=== PATIENT | male | born 1975 | race Caucasian/White ===

== ENCOUNTER 2019-06-05 11:45 | Outpatient (CLI) | payer OTHER, SELFPAY ==
[2019-06-05 13:08] LABS: Abs Immature Grans 0.05 k/cumm (0.0-0.09); Absolute Basophil Count 0.07 k/cumm (0.0-0.2); Absolute Lymphocyte Count 2.13 k/cumm (1.2-3.4); Absolute Monocyte Count 0.64 k/cumm (0.11-0.7); Absolute Neutrophil Count 3.51 k/cumm (1.2-6.7); Eosinophils % 4.5; HCT 46.6 % (40.0-50.0); Immature Grans % 0.7; Lymphocytes % 31.8; Mean Corp. HGB Concentration 34.3 g/dL (32.0-36.0); Mean Corpuscular Hemoglobin 32.9 pg (27.0-33.0); Mean Corpuscular Volume 95.7 fL (80-95); Mean Platelet Volume 12.1 fL (8.0-11.0); Monocytes % 9.6; Neutrophils % 52.4; Platelet Count 178 x1000/uL (130-400); RBC 4.87 m/cumm (4.50-6.00); RBC Distribution Width 11.8 % (11.8-14.1)
[2019-06-05 13:45] LABS: ALT 161 U/L (16-63); AST 44 U/L (15-37); Albumin 3.9 g/dL (3.4-5.0); Alkaline Phosphatase 92 U/L (46-116); Anion Gap 6.8 mmol/L (3-11); BUN 19 mg/dL (7-18); Bilirubin, Total 0.5 mg/dL (0.2-1.0); CO2 31.2 mmol/L (21.0-32.0); CREATININE 1.19 mg/dL (0.70-1.30); Calcium 9.1 mg/dL (8.5-10.1); Calculated LDL 156 mg/dL; Chloride 103 mmol/L (98-107); Cholesterol 253 mg/dL (<200); Glucose 96 mg/dL (74-106); HDL Cholesterol 28 mg/dL (40-60); Potassium 4.3 mmol/L (3.5-5.1); Sodium 141 mmol/L (136-145); Triglyceride 348 mg/dL (<150)
== END 2019-06-05 12:05 ==
PROVIDERS: PCP Internal Medicine; Visit Provider Internal Medicine
DX: E78.5 Hyperlipidemia, unspecified (principal); R50.9 Fever, unspecified
CPT/HCPCS: 36415; 80053; 80061; 85025

== ENCOUNTER 2020-10-06 01:53 | Outpatient (CLI) | payer OTHER, SELFPAY ==
[2020-10-07 12:51] LABS: COVID-19 RT-PCR UVMMC Result Negative (Negative)
== END 2020-10-06 01:54 | disposition home or self-care (01) ==
LOC: LBO 01:53
PROVIDERS: PCP Nurse Practitioner; Visit Provider Nurse Practitioner
DX: Z20.822 Contact with and (suspected) exposure to COVID-19 (principal)
CPT/HCPCS: U0003

== ENCOUNTER 2020-10-19 02:43 | Outpatient (CLI) | payer OTHER, SELFPAY ==
[2020-10-20 11:52] LABS: COVID-19 RT-PCR UVMMC Result Negative (Negative)
== END 2020-10-19 02:44 | disposition home or self-care (01) ==
LOC: LBO 02:43
PROVIDERS: PCP Nurse Practitioner; Visit Provider Nurse Practitioner
DX: Z20.822 Contact with and (suspected) exposure to COVID-19 (principal)
CPT/HCPCS: U0003

== ENCOUNTER 2020-10-28 12:17 | Outpatient (CLI) | payer OTHER, SELFPAY ==
--- NOTE | 2020-10-28 08:55 | DI.RAD_ITS ---
Exam(s) XR KNEE LT 4V AP,LAT,BROOKE,PAT EXAM: XR KNEE LT 4V AP,LAT,BROOKE,PAT CLINICAL HISTORY: pain in left knee, internal derangement lt knee, M23.92. TECHNIQUE: 2D digital imaging was performed. COMPARISON: No exams were available for comparison FINDINGS: BONES: No acute fracture is present. No bony destructive lesion is seen. JOINTS: The knee is normally aligned. No joint effusion is seen. SOFT TISSUE: Normal. IMPRESSION: Normal radiographs of the left knee. DATA REPOSITORY: RADIATION DOSE DELIVERED:
== END 2020-10-28 12:37 ==
PROVIDERS: PCP Nurse Practitioner; Visit Provider Physician Assistant Surgical
DX: M25.562 Pain in left knee (principal); M23.92 Unspecified internal derangement of left knee
CPT/HCPCS: 73564

== ENCOUNTER 2020-11-18 04:11 | Outpatient (CLI) | payer OTHER, SELFPAY ==
--- NOTE | 2020-11-18 08:43 | DI.MRI_ITS ---
Exam(s) MR LOWER JOINT LT WO EXAM: MR LOWER JOINT LT WO CLINICAL HISTORY: traumatic injury 2 years ago,INTERNAL DERANGEMENT LT KNEE, PAIN,M23.92 TECHNIQUE: Multiplanar multisequence MRI was performed.. COMPARISON: No exams were available for comparison FINDINGS: MR examination of the knee was performed according to the usual protocol. There is no significant knee joint effusion. No significant bony signal abnormality seen. Medial tibiofemoral joint: The articular cartilage of the femur and tibia appears predominantly well maintained, however there is a small focal central articular cartilage defect of the medial femoral c ondyle measuring about 3 x 4 millimeters in diameter. There is a mid body tear of the medial meniscu s which is nondisplaced. The medial collateral ligament shows abnormal signal consistent with a grad e 1-2 tear. No posteromedial corner injury seen. Lateral tibiofemoral joint: The articular cartilage of the femur and tibia appears well maintained. The meniscus and attachments appear intact. The lateral collateral ligament complex and posterolater al corner structures appear intact. Patellofemoral joint and extensor mechanism: The articular cartilage of the patellofemoral joint appe ars intact except for slight surface roughening near the median ridge. The superior and inferior pat ellar fat pads appear normal with no signal abnormality. The quadriceps tendon and patellar tendon appear intact with no evidence of a tear or significant arabella ma. The medial and lateral retinacula appear intact. Cruciate ligaments: Cruciate ligaments and attachments appear normal with no evidence of a tear. Tibiofibular joint: No specific abnormality involving the tibiofibular joint. IMPRESSION: Nondisplaced midbody medial meniscal tear with low-grade MCL associated injury. Small focal articular cartilage defect of the central portion of the medial femoral condyle as descri bed above. Minimal articular cartilage roughening of the median ridge of the patella. DATA REPOSITORY:
== END 2020-11-18 04:31 ==
PROVIDERS: PCP Nurse Practitioner; Visit Provider Student in an Organized Health Care Education/Training Program
DX: M23.204 Derangement of unspecified medial meniscus due to old tear or injury, left knee (principal)
CPT/HCPCS: 73721

== ENCOUNTER 2020-12-12 02:22 | Outpatient (CLI) | payer OTHER, SELFPAY ==
[2020-12-12 11:30] LABS: Source Nasal/Nares
[2020-12-12 17:56] LABS: COVID-19 PCR Negative (Negative)
== END 2020-12-12 02:23 | disposition home or self-care (01) ==
LOC: LBO 02:22
PROVIDERS: PCP Nurse Practitioner; Visit Provider Student in an Organized Health Care Education/Training Program
DX: Z20.822 Contact with and (suspected) exposure to COVID-19 (principal); Z01.818 Encounter for other preprocedural examination
CPT/HCPCS: 87635

== ENCOUNTER 2020-12-14 09:07 | Day surgery (SDC) | payer OTHER, SELFPAY ==
[2020-12-14] VITALS (7 sets, daily range): BP systolic 108–134; BP diastolic 44–86; PULSE 57–68; RESP 13–18; TEMP 36–36.8; O2SAT 93–97; BMI 39.4
--- NOTE | 2020-12-14 09:42 | W.PM.DSUDISC ---
Discharge Plan Disposition Patient Disposition: HOME Condition: Good Discharge Details Reason For Visit: L knee arthroscopy Attending Provider: Bijan Chi Primary Care Provider: Ria Mcfadden Home Meds and New Rx's Prescriptions: New hydrocodone-acetaminophen 5-325 mg tablet 1 tab PO Q6H PRN (Reason: pain) Qty: 6 RF: 0 ibuprofen 600 mg tablet 600 mg PO TID PRN (Reason: pain) Qty: 30 RF: 0 acetaminophen 500 mg capsule 1,000 mg PO Q8H PRN PRNQty: 90 RF: 0 Discontinued naproxen 500 mg tablet 500 mg PO BID PRN (Reason: pain) Qty: 30 RF: 0 acetaminophen 500 mg Tablet 1,000 mg PO BID PRNRF: 0 Discharge Instructions Stand Alone Forms: Arti Knee Arthroscopy Referrals: Bijan Chi MD [ [facility] STAFF PHYSICIAN] - Equipment/Supplies: Partial Weight Bearing Crutches Activity:: Activity as Tolerated Remove Dressings/Wound Care:: 72 hours Shower/Bathe:: 72 hours Diet:: As Tolerated Discharge Orders Discharge Orders: Discharge Order (Routine); Ordered 12/14/20 Ordered By: Isaac Girard DS: Diagnosis Discharge Diagnosis (1) Tear of medial meniscus of left knee: Status: Acute
[2020-12-14] MEDS: Lactated Ringers 1,000 ML 80 ML IV (09:43)
[2020-12-14] MEDS: Acetaminophen 500 MG TAB 1000 MG PO (10:07)
[2020-12-14] MEDS: Celecoxib 200 MG CAP 400 MG PO (10:07)
--- NOTE | 2020-12-14 10:33 | W.ANESPRE ---
General Info Date of Service Date Performed: 12/14/20 Height: 6 ft 2 in Weight: 139.4 kg Body Mass Index (BMI): 39.4 Surgical Procedure: Operation Date: 12/14/20 13:10 Proposed Procedures Side Surgeon p LT KNEE ARTHROSCOPIC PARTIAL MEDIAL MENISECTOMY Left Bijan Chi MD Meds Allergies and Home Medications Allergies Allergy/AdvReac Type Severity Reaction Status Date / Time No Known Allergies Allergy Verified 12/14/20 08:40 Home Medication Medication Instructions Recorded acetaminophen 1,000 mg PO Q8H PRN PRN #90 cap 12/14/20 hydrocodone-acetaminophen 1 tab PO Q6H PRN #6 tab 12/14/20 ibuprofen 600 mg PO TID PRN #30 tab 12/14/20 Current Visit Medications: Current Medications Generic Name Dose Route Start Last Admin Trade Name Freq PRN Reason Stop Dose Admin Acetaminophen 1,000 mg 12/14/20 06:00 12/14/20 10:07 Acetaminophen 500 Mg Tab PO 1,000 mg PREOP ARLENE Administration Acetaminophen 650 mg 12/14/20 09:42 Acetaminophen 325 Mg Tab PO Q4H PRN PRN Hydrocodone Bitart/Acetaminophen 0 tab 12/14/20 09:42 Hydrocodone 5/Acetaminophen 325 Tab PO Q3H PRN PRN Pain Celecoxib 400 mg 12/14/20 06:00 12/14/20 10:07 Celecoxib 200 Mg Cap PO 400 mg PREOP ARLENE Administration Ringer's Solution 1,000 mls @ 80 mls/hr 12/14/20 06:00 12/14/20 09:43 IV 01/12/21 23:59 80 mls/hr INFUSION ARLENE Administration Cefazolin Sodium 3,000 mg/ 100 mls @ 200 mls/hr 12/14/20 06:00 Sodium Chloride IVPB 12/14/20 23:59 PREOP ARLENE IV Miscellaneous Supplies 1 each 12/14/20 06:00 Iv Access IV 01/12/21 23:59 DIRECTED ARLENE Sodium Chloride 0 ml 12/14/20 06:00 Normal Saline Flush 10 Ml Syr IV 01/12/21 23:59 PRN PRN Sodium Chloride 0 ml 12/14/20 06:00 Normal Saline 10 Ml Vial IJ 01/12/21 23:59 DIRECTED PRN Sterile Water 0 ml 12/14/20 06:00 Water,Injection,Sterile 10 Ml Vial IJ 01/12/21 23:59 DIRECTED PRN PFSH Active Problems Active Problems: Problem Status Onset Code Tear of medial meniscus of left knee S83.242A Internal derangement of left knee M23.92 Hypertension I10 Viral wart on finger B07.9 Alcohol abuse F10.10 Hyperlipidemia E78.5 Medical History Medical History (Updated 12/14/20 @ 09:43 by HANSEL Paige) Bursitis of left knee Chronic rhinitis (02/13/16) Muscle right arm weakness (02/13/16) deltoid due to trauma Surgical History Surgical History (Updated 12/14/20 @ 09:43 by HANSEL Paige) Injury of vein of right upper extremity Injury to vein (unable to recall details) - sounds like a left leg vein was used for repair >20 years Tear of medial meniscus of left knee S/P Arthroscopy: 12/14/2020 Tobacco Smoking/Tobacco Use Status: Former Tobacco Use Smokeless tobacco user: chewing tobacco Passive smoking exposure: Yes Second hand exposure: No Alcohol Alcohol Intake: current Alcohol intake frequency: a few times a week Alcohol type: hard liquor Substance Use Substance use: Never Substance use type: does not use Vital Signs and Lab Results Vital Signs Most Recent Vital Signs in EMR: Most Recent Vital Signs Temp Pulse Resp BP Pulse Ox 36.8 C 68 18 134/86 96 12/14/20 09:30 12/14/20 09:30 12/14/20 09:30 12/14/20 09:30 12/14/20 09:30 Lab Results Blood Type / Crossmatch: No Data to Display Complete Blood Count: No Data to Display Complete Metabolic Panel: No Data to Display Liver Function Panel: No Data to Display Coagulation Panel: No Data to Display Cardiac Panel: No Data to Display Arterial Blood Gas: No Data to Display Venous Blood Gas: No Data to Display Pancreas Panel: No Data to Display Thyroid Panel: No Data to Display Infectious Disease: Coronavirus (COVID-19)(PCR) Negative (Negative) 12/12/20 08:48 12/12/20 Coronavirus 2019 Source Nasal/nares 12/12/20 08:48 12/12/20 Blood Cultures: No Data to Display Toxicology Panel: No Data to Display Imaging and Studies Imaging and Studies Pulmonary Function Summary: Isolated borderline mildly elevated diffusion capacity. This can be seen in Asthma. If the diagnosis of asthma is in question, proceeding with methacholine challenge testing may prove to be useful. Anesthesia Assessment and Plan Anesthesia History Personal History: No History of Anesthesia Complications Family History: No Family History of Anesthesia Complications Exercise Tolerance Exercise Tolerance: Metabolic Equivalents>4 Pertinent Negatives Pertinent Negatives: No Symptoms of GERD, No Major Cardiovascular Symptoms or Complaints, No Major Pulmonary Symptoms or Complaints (+snores ), No History of CVA/TIA and Other Cardiac & Pulmonary Exam Cardiac Exam: Normal S1/S2 Heart Sounds Pulmonary Exam: Clear Bilateral Breath Sounds Airway Exam Known Difficult Airway: No Mallampati Class: 3 Mouth Opening: Normal (> 3cm) Thyromental Distance: Greater than 3 cm Facial Hair: Full Hale Neck Range of Motion: Full ROM Neck Circumference: Thick Teeth Condition: Normal Dentition ASA Classification ASA Score: ASA 2 Emergency Case?: No NPO Status NPO Status: NPO Clears >2 hours, Solids >8 hours Anesthesia Plan Resuscitation Status: Full Code Anesthesia Technique: General Anesthesia Airway Planned: LMA Monitors Used: Standard Monitors Preoperative Comments:: Discussed spinal vs LMA general with pt. Patient would like to proceed with general
[2020-12-14] MEDS: ceFAZolin 3,000 MG in Normal Saline 100 ML 200 MG IVPB (11:18)
[2020-12-14] MEDS: Bupivacaine 0.5% Pres-Free 30 ML VIAL (11:54)
--- NOTE | 2020-12-14 11:55 | W.PM.OP ---
Date of service: 12/14/20 Time of Service: 11:55 Operative Note Operative Note DATE OF PROCEDURE: 12/14/20 PRE-OP DIAGNOSIS: Left Medial Meniscus Tear POST-OP DIAGNOSIS: same PROCEDURE: Left Knee Arthroscopic Partial Medial Menisectomy SURGEON: Bijan Chi Refer to Anesthesia Record ESTIMATED BLOOD LOSS: 0 PATHOLOGY: none sent TOURNIQUET TIME: 0 COMPLICATIONS: None Patient was transported to: PACU Patient's condition: stable Indications: I have seen Ata in clinic for symptoms of a meniscus tear. This was confirmed based on MRI and exam findings. Nonoperative measures were exhausted but disability and pain persisted. I discussed knee arthroscopy with meniscal intervention with the patient. I reviewed the risks of the procedure to include, but not limited to, bleeding, infection, pain, stiffness, damage to nerves or vessels, recurrence, blood clot. Despite these risks, the patient elected to proceed. Findings: A diagnostic arthroscopy was performed with the following findings: Suprapatellar Pouch: Moderate inflammation, No loose bodies Medial Compartment: Subacute radial tear of the posterior horn with some associated complex tearing, Intact meniscal root, No significant chondromalacia or signs of arthritis, No loose bodies Notch: ACL and PCL were intact Lateral Compartment: No meniscal tear, Intact meniscal root, No significant chondromalacia or signs of arthritis, No loose bodies Patellofemoral Compartment: No significant chondromalacia, No apparent patellar maltracking Procedure Description: Ata was greeted in the preoperative holding area where the correct side was identified and marked. The consent was reviewed with the patient and signed. The history and physical was updated. All questions were answered. He was taken back to the operating room. The patient was placed into the supine position on the operating room table. A nonsterile tourniquet was placed high onto the leg but not used. All bony prominences were well padded. Prophylactic antibiotics in the form of Cefazolin were administered. The left leg was then prepped with Chloraprep and draped in a standard fashion with stockinette and extremity drape. A timeout to confirm correct identity, side and site, procedure, allergies, anesthesia, and medical concerns was performed. A standard lateral portal was made at the lateral border of the patella tendon in line with the inferior pole of the patella, soft spot. The skin and deep tissue was incised sharply and the blunt trochar was inserted atraumatically. A diagnostic arthroscopy was performed and the findings are listed above. The suprapatellar pouch had some moderate inflammatory change. The patellofemoral articulation showed no articular damage as well as good tracking. The lateral gutter had no loose bodies and the medial gutter had no loose bodies. The knee was brought into some valgus stress in extension to open the medial compartment. A medial portal was made, localized by a spinal needle. The portal was created with an #11 blade through skin and capsule under direct visualization avoiding any meniscal injury. A probe was then inserted into the medial compartment. The medial compartment was fully inspected. The chondral surface of the tibia showed no significant chondromalacia and the surface of the femur showed no significant chondromalacia. The medial meniscus had a complex tear with a primary radial component of the posterior horn. After evaluation, the meniscus was debrided down to a stable base using a series of biters and arthroscopic leander. It was probed afterwards to confirm that the tear had been removed and the meniscus was stable. The notch was then inspected which showed an intact ACL and an intact PCL. The leg was then brought into a figure of 4 position. The lateral compartment was fully inspected with the arthroscope and a probe. The chondral surface of the lateral femur showed no significant chondromalacia. The chondral surface of the lateral tibia showed no significant chondromalacia. The lateral meniscus had no meniscal tear. The arthroscope was brought back into the suprapatellar pouch and the leg was in full extension. The knee was thoroughly irrigated with the arthroscopic fluid on high flow and pressure. Inflow was stopped and excess fluid was removed. The wounds were closed with 4-0 Nylon. They were dressed with Xeroform, 4x4 gauze, ABD pad, Kerlix and an JUAN J wrap. A cryo-cuff was applied. Ata tolerated the procedure well and was returned to the Same Day Surgery area in a stable condition suffering no known complication.
[2020-12-14] MEDS: HYDROcodone 5/Acetaminophen 325 TAB PO (12:55)
--- NOTE | 2020-12-14 13:15 | W.ANESPOSTOP ---
Postoperative Evaluation Date, Time and Location Date Performed: 12/14/20 Time Performed: 13:16 Patient Location: Day Surgery Unit Vital Signs Most Recent Imported Vital Signs: Most Recent Vital Signs Temp Pulse Resp BP Pulse Ox 36.1 C L 59 L 16 118/68 93 12/14/20 12:25 12/14/20 12:25 12/14/20 12:25 12/14/20 12:25 12/14/20 12:25 Pain Score Most Recent Pain Score: Most Recent Pain Score Pain Level 0 12/14/20 12:25 Assessment Mental Status: Awake (Alert & Oriented to Patient Baseline) Airway and Respiratory Function: Patent airway with normal (patient baseline) respiratory exam Cardiovascular Function: Hemodynamically Stable Hydration Status: Adequately Hydrated Nausea & Vomiting: No Nausea or Vomiting Pain: Pt. Denies Any Pain Peripheral Nerve Block: Patient did not receive a nerve block
== END 2020-12-14 14:00 | disposition home or self-care (01) ==
PROVIDERS: PCP Nurse Practitioner; Visit Provider Student in an Organized Health Care Education/Training Program
PROC: (CPT 29870; principal; 2020-12-14 13:00)
DX: S83.242A Other tear of medial meniscus, current injury, left knee, initial encounter (principal)
CPT/HCPCS: 29881; J0690; J1100; J1885; J2001; J2405; J2704

== ENCOUNTER 2023-04-11 01:28 | Outpatient (CLI) | payer BC, SELFPAY ==
[2023-04-11] MEDS: Levalbuterol HFA 15 GM INH 4 PUFF IH (09:29)
[2023-04-11] MEDS: Inhaler, Assist Device 1 EACH MC (09:30)
--- NOTE | 2023-04-12 15:53 | W.PFT ---
Date of service: 04/11/23 Time of Service: 08:06 Pulmonary Function Test Result Indications: Cough Interpretation Spirometry: There is no airflow limitation. There is a significant bronchodilator response. Spirometry is restrictive. Impression No airflow obstruction but with a significant bronchodilator response. The restrictive appearing spirometry could be pseudo-restriction from obesity, however cannot rule out restrictive lung disease including ILD or neuromuscular weakness. Clinical Correlation therefore is recommended.
== END 2023-04-11 01:29 | disposition home or self-care (01) ==
LOC: RT 01:28
PROVIDERS: PCP Nurse Practitioner Family; Visit Provider Nurse Practitioner Family
DX: R06.2 Wheezing (principal)
CPT/HCPCS: 94060

== ENCOUNTER 2023-04-11 11:39 | Outpatient (CLI) | payer BC, SELFPAY ==
[2023-04-11 09:14] LABS: HCT 50.6 % (40.0-50.0); HGB 17.4 g/dL (13.5-17.5); MCH 32.5 pg (27.0-33.0); MCHC 34.4 % (32.0-36.0); MCV 94 fL (80-95); MPV 11.8 fL (8.0-11.0); Platelet Count 200 10^3/uL (130-400); RBC 5.36 10^6/uL (4.36-5.78); RDW 11.7 % (11.8-14.1); WBC 7.06 10^3/uL (4.4-10.8)
[2023-04-11 09:54] LABS: Hemoglobin A1C 5.8 % (<5.7)
[2023-04-11 10:04] LABS: ALT 83 U/L (16-63); AST 29 U/L (15-37); Albumin 3.7 g/dL (3.4-5.0); Alkaline Phosphatase 86 U/L (46-116); Anion Gap 3.9 mmol/L (3-11); BUN 18 mg/dL (7-18); Bilirubin, Total 0.5 mg/dL (0.2-1.0); CO2 30.1 mmol/L (21.0-32.0); CREATININE 1.1 mg/dL (0.70-1.30); Calcium 9.3 mg/dL (8.5-10.1); Calculated LDL 155 mg/dL (<100); Chloride 103 mmol/L (98-107); Cholesterol 239 mg/dL (<200); Estimated GFR 82.29 (mL/min/1.73m2); Glucose 143 mg/dL (74-106); HDL Cholesterol 35 mg/dL (40-60); Potassium 4.1 mmol/L (3.5-5.1); Sodium 137 mmol/L (136-145); Total Protein 7.5 g/dL (6.4-8.2); Triglyceride 249 mg/dL (<150)
== END 2023-04-11 11:40 | disposition home or self-care (01) ==
LOC: LBO 11:41
PROVIDERS: PCP Nurse Practitioner Family; Visit Provider Nurse Practitioner Family
DX: E78.5 Hyperlipidemia, unspecified (principal); F10.10 Alcohol abuse, uncomplicated; I10 Essential (primary) hypertension; R06.2 Wheezing; Z00.00 Encounter for general adult medical examination without abnormal findings
CPT/HCPCS: 36415; 80053; 80061; 85027; 83036

== ENCOUNTER → 2023-04-23 01:22 | Outpatient (CLI) | payer BC, SELFPAY ==
--- NOTE | 2023-04-23 07:30 | DI.RAD_ITS ---
Exam(s) XR CHEST 2V PA LATERAL EXAM: XR CHEST 2V PA LATERAL CLINICAL HISTORY: wheezing, cough and SOB,r06.2 TECHNIQUE: 2D digital imaging was performed. COMPARISON: No exams were available for comparison FINDINGS: HEART: Normal size. Aorta: Not dilated. PULMONARY VASCULATURE: Normal. LUNGS: Clear. PLEURAL SPACE: No pleural effusion or pneumothorax. BONE:Unremarkable for age. IMPRESSION: No acute abnormality. DATA REPOSITORY: RADIATION DOSE DELIVERED:
== END ==
PROVIDERS: PCP Nurse Practitioner Family; Visit Provider Nurse Practitioner Family
DX: R06.2 Wheezing (principal); R05.9 Cough, unspecified
CPT/HCPCS: 71046

== ENCOUNTER 2023-11-07 06:07 | Emergency (ER) | payer BC, SELFPAY ==
--- NOTE | 2023-11-07 07:15 | DI.CT_ITS ---
Exam(s) CT ABDOMEN PELVIS W EXAM: CT ABDOMEN PELVIS W CLINICAL HISTORY: RLQ PAIN TECHNIQUE: Imaging Protocol: Axial computed tomography images with coronal and sagittal reformatted images were created and reviewed. CONTRAST MATERIAL: Intravenous: Omnipaque 350 Contrast volume:100 mL Oral: No COMPARISON: No exams were available for comparison FINDINGS: ABDOMEN: Lung Bases: Normal where visualized. Liver: There is decreased attenuation of the liver consistent with fatty infiltration. The liver lilia sures 23 cm long. No measurable mass. Portal, Superior Mesenteric, and Splenic Veins: Unremarkable. Gallbladder and Biliary Tract: No radiodense calculus or dilation. Pancreas: Normal density, no abnormal calcifications or inflammatory process. Spleen: Normal. Adrenals: No masses seen. Kidneys: Normal size, contour and axis. There is a 7 mm right UPJ stone causing [id number] hydr onephrosis. No masses seen. Abdominal Aorta: Abdominal portion non-dilated. Bowel: No obstruction or bowel wall thickening. Appendix is unremarkable. Peritoneal Cavity: No ascites, collection or mesenteric inflammatory response. No free air. Lymph Nodes: Mildly prominent lymph nodes are seen in the mesentery. There is a 1.8 cm lymph node mo perior to the head of the pancreas. Bones: Within normal limits for the patient's age. Soft Tissues: Unremarkable. PELVIS: Bladder: There is mild thickening of the wall of the urinary bladder. The urinary bladder is incompl etely distended. Reproductive Organs: Prostatic calcifications are present. Lymph Nodes: Within normal limits. Bones: Within normal limits for the patient's age. IMPRESSION: 1. 7 mm right UPJ stone causing pznr-pz-iodidljp hydronephrosis. 2. Mild wall thickening of the urinary bladder. This may be due to underdistention. Cystitis or chr onic bladder outlet obstruction cannot be excluded. Please correlate clinically. 3. Nonspecific prominent lymph nodes. There is a 1.8 cm lymph nodes appear to the head of the pancre as. Follow-up imaging in 3-6 months is recommended. 4. Hepatomegaly and hepatic steatosis. Unexpected findings RADIATION DOSE DELIVERED: 1,687.85mGy.cm Total DLP DATA REPOSITORY: All CT scans at this facility are submitted to the National Radiology Data Registry (NRDR) Dose Index Registry (DIR) with the [employer] ([employer]). RADIATION OPTIMIZATION: All CT scans at this facility use at least one of these dose optimization te chniques: automated exposure control; mA and/or kV adjustment per patient size (includes targeted exa ms where dose is matched to clinical indication); or iterative reconstruction.
[2023-11-07] MEDS: Ketorolac 15 MG/ML VIAL IVP (10:04)
[2023-11-07] MEDS: Normal Saline 1,000 ML 1000 ML IV (10:04)
[2023-11-07] MEDS: Omnipaque 350 MG/ML 100 ML BTL IJ (10:22)
[2023-11-07 11:35] LABS: Bilirubin Negative (Negative); Blood Negative (Negative); Clarity Clear (Clear); Glucose Negative (Negative); Ketones Negative (Negative); Leukocyte Esterase Negative (Negative); Nitrite Negative (Negative); Urobilinogen 0.2 mg/dL (Up to 0.2)
[2023-11-07 11:46] LABS: Albumin 3.7 g/dL (3.4-5.0); Alkaline Phosphatase 80 U/L (46-116); Anion Gap 9.6 mmol/L (3-11); BUN 18 mg/dL (7-18); Bilirubin, Total 0.6 mg/dL (0.2-1.0); CO2 27.4 mmol/L (21.0-32.0); CREATININE 1.3 mg/dL (0.70-1.30); Calcium 8.5 mg/dL (8.5-10.1); Chloride 104 mmol/L (98-107); Estimated GFR 67.34 (mL/min/1.73m2); Glucose 167 mg/dL (74-106); Potassium 4.3 mmol/L (3.5-5.1); Sodium 141 mmol/L (136-145); Total Protein 7.3 g/dL (6.4-8.2)
[2023-11-07 11:47] LABS: ALT 98 U/L (16-63); AST 31 U/L (15-37); Lipase 66 U/L (16-77)
[2023-11-07 11:52] LABS: Lactate 2.4 mmol/L (0.6-1.4)
--- NOTE | 2023-11-07 12:03 | ED.PROG_ITS ---
Date of service: 11/07/23 Time of Service: 12:03 Medical Decision Making Patient signed out to me from overnight provider who saw him while he was on downtime please see their written documentation that should be uploaded into the system. He came in for right lower quadrant abdominal pain, CT shows a right UVJ stone 7 mm in size per radiology. UA not consistent with infection. He feels significantly better, tolerating p.o. and has adequate pain control. Will discharge and have him follow-up with urology as soon as possible, return precautions given Lab Data Lab results reviewed: Yes I reviewed the patient's lab results. Quality:[facility] Health Related Social Needs: No Data to Display Discharge Plan Disposition Patient Disposition: Home Condition: Stable Discharge Details Clinical Impression: Abdominal pain, Right kidney stone Primary Care Provider: Unknown,Unknown ED Provider: Tacos Maddox Home Meds and New Rx's Prescriptions: New ondansetron 4 mg tablet,disintegrating 4 mg PO Q8H PRN (Reason: nausea and vomiting) Qty: 30 0RF oxycodone 5 mg tablet 5 mg PO Q8H PRNQty: 12 0RF tamsulosin [Flomax] 0.4 mg capsule 0.4 mg PO DAILY Qty: 14 0RF Rx Instructions: Take once daily for 14 days or until you passed your kidney stone Continued budesonide-formoterol [Symbicort] 80-4.5 mcg/actuation HFA aerosol inhaler 2 puff inhalation BID Qty: 10.2 12RF Rx Instructions: To use as SMART therapy. up to 12 puffs in a day ibuprofen 600 mg tablet 600 mg PO TID PRN (Reason: pain) Qty: 30 0RF acetaminophen 500 mg capsule 1,000 mg PO Q8H PRN PRNQty: 90 0RF budesonide-formoterol [Symbicort] 80-4.5 mcg/actuation HFA aerosol inhaler 2 inh inhalation BID Discharge Instructions Instructions: Kidney Stones (ED) Additional Instructions: You should receive a call for a follow-up appointment with urology You can take 1000 mg of Tylenol and 600 mg of ibuprofen every 6 hours as needed If you feel more ill, have high fevers, uncontrolled pain, or persistent vomiting return to the emergency department for reevaluation
[2023-11-07 12:05] LABS: HCT 51.6 % (40.0-50.0); HGB 17.6 g/dL (13.5-17.5); MCH 32.8 pg (27.0-33.0); MCHC 34.1 % (32.0-36.0); MCV 96 fL (80-95); RBC 5.36 10^6/uL (4.36-5.78); RDW 11.8 % (11.8-14.1); RDW-SD 41.7 fL; WBC 7.77 10^3/uL (4.4-10.8)
--- NOTE | 2023-11-07 12:07 | NUR.NOTE ---
Referral faxed to Urology for a follow up appointment for kidney stones as soon as possible
[2023-11-07 12:10] LABS: Absolute Lymphocyte Count 2.39 10^3/uL (1.2-3.4); Absolute Monocyte Count 0.55 10^3/uL (0.1-0.8); Lymphocytes % 30.8 %; Monocytes % 7.1 %; Neutrophils % 53.7 %
[2023-11-07 12:11] LABS: Abs Immature Grans 0.15 10^3/uL (0.0-0.06); Absolute Basophil Count 0.09 10^3/uL (0.0-0.2); Absolute Eosinophil Count 0.41 10^3/uL (0.0-0.7); Absolute Neutrophil Count 4.18 10^3/uL (1.2-6.7); Basophils % 1.2 %; Diff Comment Diff Reviewed; Eosinophils % 5.3 %; Immature Grans % 1.9 %; RBC Morphology Normal
== END 2023-11-07 12:50 | disposition home or self-care (01) ==
PROVIDERS: Student in an Organized Health Care Education/Training Program; Emergency Provider Emergency Medicine
DX: N20.0 Calculus of kidney (principal); R10.31 Right lower quadrant pain; R11.2 Nausea with vomiting, unspecified
CPT/HCPCS: 00123; 80053; 83690; 96361; 96374; 99285; 74177; 81003; 83605; 85025; 99283; J1885; J3490

== ENCOUNTER 2024-06-26 00:32 | Outpatient (CLI) | payer BC, SELFPAY ==
--- NOTE | 2024-06-26 07:45 | DI.CT_ITS ---
Exam(s) CT ABDOMEN W EXAM: CT ABDOMEN W CLINICAL HISTORY: Follow up CT from October 2023, pancreatic cyst, K86.2 TECHNIQUE: Imaging Protocol: Axial computed tomography images with coronal and sagittal reformatted images were created and reviewed CONTRAST MATERIAL: Intravenous: Omnipaque 350 Contrast volume:100 contrast route:IV - Oral: no COMPARISON: CT CT ABDOMEN PELVIS W from 11/07/2023 FINDINGS: ABDOMEN: Lung Bases: Normal where visualized. Liver: Again noted to be enlarged at 23 cm. Similar decreased attenuation consistent with fatty infi ltration. No measurable mass. Gallbladder and biliary tract: No radiodense calculus or dilation. Pancreas: Normal density, no abnormal calcifications or inflammatory process. Spleen: Normal. Kidneys: The right kidney appears atrophic, measuring 9.2 cm in length and shows some parenchymal th inning.. The left kidney measures 12.7 cm in length.. No radiodense stones or obstructive uropathy. No masses seen. Adrenal glands: No masses seen. Abdominal Aorta: Abdominal portion non-dilated. Lymph nodes: Stable size of lymph nodes superior to the pancreatic head measuring 18 millimeters cox sverse. There are other small lymph nodes in the mesentery which appear stable. Bowel: No wall thickening or evidence of obstruction. Stomach unremarkable as visualized. Bones: Unremarkable for age. IMPRESSION: Stable size of lymph nodes superior to the head of the pancreas. Stable enlarged liver with hepatic steatosis. Mildly atrophic right kidney. No stone or hydronephrosis. RADIATION DOSE DELIVERED: 677.66mGy.cm Total DLP DATA REPOSITORY: All CT scans at this facility are submitted to the National Radiology Data Registry (NRDR) Dose Index Registry (DIR) with the [employer] (ACR). RADIATION OPTIMIZATION: All CT scans at this facility use at least one of these dose optimization te chniques: automated exposure control; mA and/or kV adjustment per patient size (includes targeted exa ms where dose is matched to clinical indication); or iterative reconstruction.
[2024-06-26] MEDS: Barium Sulfate 2% W/V-Berry Smoothie 450 ML BTL PO (13:23)
[2024-06-26 13:31] LABS: Hemoglobin A1C 5.6 % (<5.7)
[2024-06-26 13:39] LABS: Anion Gap 8.6 mmol/L (3-11); BUN 23 mg/dL (7-18); CO2 29.4 mmol/L (21.0-32.0); CREATININE 1.7 mg/dL (0.70-1.30); Calcium 8.8 mg/dL (8.5-10.1); Calculated LDL 160 mg/dL (<100); Chloride 103 mmol/L (98-107); Cholesterol 228 mg/dL (<200); Estimated GFR 48.51 (mL/min/1.73m2); Glucose 101 mg/dL (74-106); HDL Cholesterol 31 mg/dL (40-60); Potassium 4.2 mmol/L (3.5-5.1); Sodium 141 mmol/L (136-145); Triglyceride 187 mg/dL (<150)
[2024-06-26] MEDS: Omnipaque 350 MG/ML 100 ML BTL IJ (14:17)
[2024-06-26] MEDS: Normal Saline - Diluent 50 ML VIAL IJ (14:18)
== END 2024-06-26 00:52 ==
LOC: DI 00:32
PROVIDERS: PCP Nurse Practitioner Family; Visit Provider Nurse Practitioner Family
DX: Z00.00 Encounter for general adult medical examination without abnormal findings (principal); I10 Essential (primary) hypertension; E78.2 Mixed hyperlipidemia; J45.909 Unspecified asthma, uncomplicated; F10.10 Alcohol abuse, uncomplicated; K86.2 Cyst of pancreas
CPT/HCPCS: 80048; 80061; 74160; 83036; J3490

== ENCOUNTER 2024-10-02 07:04 | Day surgery (SDC) | payer BC, SELFPAY ==
--- NOTE | 2024-10-01 16:33 | HPE_ITS ---
Assessment and Plan Assessment and plan (1) Positive colorectal cancer screening using Cologuard test: Status: Acute Assessment and plan: We reviewed the role of screening colonoscopy as part of routine health maintenance, what to expect in terms of the procedure and the recovery. Ata had a chance to ask any questions about the procedure. We can proceed with colonoscopy as planned. History of Present Illness History of Present Illness Chief Complaint: Screening colonoscopy Narrative: Ata is a 49-year-old male who underwent a Cologuard test which was positive. He is following up with his first screening colonoscopy. He denies any melena, hematochezia, unintentional weight loss, or other signs or symptoms of colorectal cancer. He denies any family history of colon cancer. PFSH All Active Problems Positive colorectal cancer screening using Cologuard test (Acute) Asthma (Chronic) Plantar fasciitis (Acute) Dysphagia (Acute) Hypertension (Chronic) Alcohol abuse (Chronic) 2-3 x week, 3-4 drinks Hyperlipidemia (Acute) Medical History Chronic rhinitis (02/13/16) Muscle right arm weakness (02/13/16) deltoid due to trauma Bursitis of left knee Surgical History Injury of vein of right upper extremity Injury to vein (unable to recall details) - sounds like a left leg vein was used for repair >20 years Tear of medial meniscus of left knee S/P Arthroscopy: 12/14/2020 Family History Mother No problems noted. Father Diabetes Brother No problems noted. Maternal Grandfather No problems noted. Paternal Grandfather No problems noted. Maternal Grandmother No problems noted. Paternal Grandmother Breast cancer Daughter No problems noted. Social History Smoking/Tobacco Use Status: Former Tobacco Use Quit Date: 07/01/23 Smokeless tobacco user: chewing tobacco Second Hand Exposure: Yes Smoking risk assessment performed?: Yes Alcohol Intake: current Alcohol Intake frequency: a few times a week Alcohol type: hard liquor Details: 6 or more drinks monthly or less Drug use: Never Substance use type: does not use Counseling given: No Adopted: No Caregiver/Support person: No Household members: spouse and children Housing: house Number of Children: 1 number of grandchildren: 0 Communication Needs: None Education Level: college Details: [employer]. 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 [employer] Pets and animals: Yes Pets and animals: cat(s), dog(s) and fish Sexually active: Yes Do you think of yourself as: straight/heterosexual Current gender identity: male What is your relationship status?: How often do you talk on the phone with friends or family?: three or more times per week How often do you get together with friends or relatives?: once per week How often do you attend jew or tenriism services?: decline to answer Do you belong to any clubs or organized social groups?: no Panel score (0-1 are the most socially isolated patients): 2 What type of physical activity do you participate in: other Details: hunting, work Duration: 30-45 minutes/day Frequency: 3-4 times per week Riri/Hoahaoism: L[employer] Day Special riri needs: No Seatbelt use: sometimes Helmet use: No Drive intox or ride w/intox drive away driver: No Firearms in home: Yes Firearms unloaded and locked: No Do you feel safe at home: Yes Do you feel safe in your relationship?: Yes Victim of physical abuse: No Victim of emotional abuse: No Victim of sexual abuse: No Would you like helpful sources: No Meds Allergies and Home Medications Allergies Allergy/AdvReac Type Severity Reaction Status Date / Time No Known Allergies Allergy Verified 10/02/24 07:12 Home Medications ?Medication ?Instructions ?Recorded ?Confirmed ?Type ibuprofen 600 mg tablet 600 mg PO TID PRN pain #30 tabs 12/14/20 10/01/24 Rx budesonide-formoterol HFA 80 2 inh inhalation BID 11/07/23 10/02/24 History mcg-4.5 mcg/actuation aerosol inhaler (Symbicort) Exam Const General: cooperative, healthy appearing and not in acute distress Neck Neck: normal visual inspection, no lymphadenopathy and supple Resp Effort & Inspection: normal respiratory effort Auscultation: clear to auscultation bilaterally Cardio Jugular venous pressure: no JVD Rate: regular rate Rhythm: regular rhythm Heart Sounds: S1 normal and S2 normal GI Inspection: normal to inspection Palpation: soft, no guarding, no hernias and nontender Percussion: normal to percussion Auscultation: normal bowel sounds Neuro General: patient alert, patient awake and patient oriented x3 Psych Appearance: grossly normal
--- NOTE | 2024-10-01 16:34 | W.PM.DSUDISC ---
Date of service: 10/02/24 Discharge Plan Disposition Patient Disposition: Home Condition: Good Discharge Details Reason For Visit: Screening colonoscopy Attending Provider: Israel Rahman Primary Care Provider: Kirsten Ramirez Home Meds and New Rx's Prescriptions: Continued ibuprofen 600 mg tablet 600 mg PO TID PRN (Reason: pain) Qty: 30 0RF budesonide-formoterol [Symbicort] 80-4.5 mcg/actuation HFA aerosol inhaler 2 inh inhalation BID Discontinued polyethylene glycol 3350 17 gram/dose powder 238 g PO ONCE Qty: 238 0RF Rx Instructions: take per colonoscopy instructions bisacodyl [Dulcolax (bisacodyl)] 5 mg tablet,delayed release (DR/EC) 5 mg PO ONCE Qty: 4 0RF Rx Instructions: take per colonoscopy instructions Discharge Instructions Instructions: Colon polyps Additional Instructions: CINTHIA, I hope you are comfortable through the colonoscopy. Everything went very smoothly. I did find, and removed a total of 5 polyps today. All of these were relatively small, none of them have any worrisome features to the naked eye. These will all be sent off for testing, once I know the nature of the polyps, my office will be in touch with recommendations for future colonoscopies. If you need anything, or have any questions, please do not hesitate to ask. 1. If tolerated, consume a soft, low fiber diet for 1-2 days. 2[address] Do not drive, drink alcohol, operate machinery, make critical decisions, or do activities that require coordination or balance for 24 hours. 3. Because air was put into your colon during the procedure, expelling air from your rectum (passing gas or farting) is normal. 4. You may not have a bowel movement for 1-3 days because of the colonoscopy prep. This is normal. 5. Go directly to the emergency room if you notice any of the following: Develop chills (warm to touch), or if you have a thermometer and your temperature is above 101 Difficulty breathing or difficultly swallowing Persistent vomiting Severe abdominal pain, other than gas cramps Severe chest pain Black, tarry stools Any bleeding ? exceeding one tablespoon 6. Call your physician if the site where your intravenous was started becomes red, swollen, painful, and warm to touch. 7. Your physician has reviewed your pre-procedure medications. Please continue to take those medications as previously ordered. You will be given specific information/education regarding any changes to your medications before leaving. Activity:: Activity as Tolerated Diet:: As Tolerated Discharge Orders Discharge Orders: Discharge Order (Routine); Ordered 10/01/24 Ordered By: Israel Rahman DS: Diagnosis Discharge Diagnosis (1) Positive colorectal cancer screening using Cologuard test: Status: Acute Asessment and Plan: Follow-up on polypectomy results
[2024-10-02 07:17] VITALS: BP 172/108; PULSE 61; RESP 20; TEMP 36.3; O2SAT 97
[2024-10-02] MEDS: Lactated Ringers 1,000 ML 80 ML IV (07:31)
--- NOTE | 2024-10-02 07:34 | W.ANESPRE ---
General Info Date of Service Date Performed: 10/02/24 Height: 6 ft 3 in Weight: 139.5 kg Body Mass Index (BMI): 38.4 Surgical Procedure: Operation Date: 10/02/24 08:20 Proposed Procedure Side Surgeon panda Rahman MD Meds Allergies and Home Medications Allergies Allergy/AdvReac Type Severity Reaction Status Date / Time No Known Allergies Allergy Verified 10/02/24 07:12 Home Medication ?Medication ?Instructions ?Recorded ibuprofen 600 mg tablet 600 mg PO TID PRN pain #30 tabs 12/14/20 budesonide-formoterol HFA 80 2 inh inhalation BID 11/07/23 mcg-4.5 mcg/actuation aerosol inhaler (Symbicort) Current Visit Medications: Current Medications Generic Name Dose Route Start Last Admin Trade Name Freq PRN Reason Stop Dose Admin Ringer's Solution 1,000 mls @ 80 mls/hr 10/02/24 06:00 10/02/24 07:31 IV 10/02/24 23:59 80 mls/hr INFUSION ARLENE Administration IV Miscellaneous Supplies 1 each 10/02/24 06:00 Iv Access IV 10/02/24 23:59 DIRECTED ARLENE Ondansetron HCl 4 mg 10/01/24 16:35 Ondansetron 4 Mg/2 Ml Vial IVP 10/31/24 16:34 Q4H PRN PRN Nausea / Vomiting Sodium Chloride 0 ml 10/02/24 06:00 Normal Saline Flush 10 Ml Syr IV 10/02/24 23:59 PRN PRN Sodium Chloride 0 ml 10/02/24 06:00 Normal Saline 10 Ml Vial IJ 10/02/24 23:59 DIRECTED PRN Sterile Water 0 ml 10/02/24 06:00 Water,Injection,Sterile 10 Ml Vial IJ 10/02/24 23:59 DIRECTED PRN PFSH Active Problems Active Problems: Problem Status Onset Code Positive colorectal cancer screening using Cologuard test Acute R19.5 Asthma Chronic J45.909 Plantar fasciitis Acute M72.2 Dysphagia Acute R13.10 Hypertension Chronic I10 Alcohol abuse Chronic F10.10 Hyperlipidemia Acute E78.5 Medical History Medical History Chronic rhinitis (02/13/16) Muscle right arm weakness (02/13/16) deltoid due to trauma Bursitis of left knee Surgical History Surgical History Injury of vein of right upper extremity Injury to vein (unable to recall details) - sounds like a left leg vein was used for repair >20 years Tear of medial meniscus of left knee S/P Arthroscopy: 12/14/2020 Tobacco Smoking/Tobacco Use Status: Former Tobacco Use Smokeless tobacco user: chewing tobacco Passive smoking exposure: No Second hand exposure: Yes Alcohol Alcohol Intake: current Alcohol intake frequency: a few times a week Alcohol type: hard liquor Details: 6 or more drinks monthly or less Substance Use Substance use: Never Substance use type: does not use Vital Signs and Lab Results Vital Signs Most Recent Vital Signs in EMR: Most Recent Vital Signs Temp Pulse Resp BP Pulse Ox 36.3 C L 61 20 172/108 H 97 10/02/24 07:17 10/02/24 07:17 10/02/24 07:17 10/02/24 07:17 10/02/24 07:17 Lab Results Blood Type / Crossmatch: No Data to Display Complete Blood Count: No Data to Display Complete Metabolic Panel: No Data to Display Liver Function Panel: No Data to Display Coagulation Panel: No Data to Display Cardiac Panel: No Data to Display Arterial Blood Gas: No Data to Display Venous Blood Gas: No Data to Display Pancreas Panel: No Data to Display Thyroid Panel: No Data to Display Infectious Disease: No Data to Display Blood Cultures: No Data to Display Toxicology Panel: No Data to Display Imaging and Studies Imaging and Studies Study information below may be from another EMR and interpreted by another provider. Please see original notes in EMR for more complete details. Pulmonary Function Summary: Isolated borderline mildly elevated diffusion capacity. This can be seen in Asthma. If the diagnosis of asthma is in question, proceeding with methacholine challenge testing may prove to be useful. Anesthesia Assessment and Plan Anesthesia History Personal History: No History of Anesthesia Complications Family History: No Family History of Anesthesia Complications Exercise Tolerance Exercise Tolerance: Metabolic Equivalents>4 Pertinent Negatives Pertinent Negatives: No Symptoms of GERD Cardiac & Pulmonary Exam Cardiac Exam: Normal S1/S2 Heart Sounds Pulmonary Exam: Clear Bilateral Breath Sounds Implantable Cardiac Device Does patient have a Pacemaker or an ICD?: No Airway Exam Known Difficult Airway: No Mallampati Class: 3 Mouth Opening: Normal (> 3cm) Thyromental Distance: Greater than 3 cm Neck Range of Motion: Full ROM Neck Circumference: Thick Teeth Condition: Normal Dentition ASA Classification ASA Score: ASA 2 Emergency Case?: No NPO Status NPO Status: NPO Clears >2 hours, Solids >8 hours Anesthesia Plan Resuscitation Status: Full Code Anesthesia Technique: General Anesthesia Airway Planned: Natural Airway Monitors Used: Standard Monitors
[2024-10-02 07:36] VITALS: BMI 38.4
[2024-10-02] MEDS: Famotidine 20 MG/2 ML VIAL IVP ×2 (07:44)
--- NOTE | 2024-10-02 08:34 | BOWEL_PTH ---
PATIENT: Ata Flower LOC: [facility] U#:[id number] AGE/SX: 49/M ROOM: RE10/02/[address]: Israel Rahman MD : [id number] BED: DIS: 10/02/2024 SPEC #: [id number] RECD: 10/02/24 13:06 STATUS: KOLE RE #: [id number] YANA: 10/02/24 08:[address]: Israel Rahman DEPT: Surgical Specimen RECD BY: Lara Holley ENTERED: 10/02/24 13:08 SP TYPE: Bowel OTHR DR: Kirsten Ramirez, MOOSE Tissues: 1 - BIOPSY BOWEL 2 - BIOPSY BOWEL 3 - BIOPSY BOWEL Procedures: GROSS AND MICRO LEVEL 4 Comments: [id number]
[2024-10-02 08:57] VITALS: BP 148/81; PULSE 64; RESP 16; TEMP 36.5; O2SAT 93
--- NOTE | 2024-10-02 08:59 | W.COLOREPORT ---
Date of service: 10/02/24 Time of Service: 08:59 Colonoscopy Report Date of procedure: 10/02/24 Pre-op diagnosis general: Screening colonoscopy with positive Cologuard test Post-op diagnosis procedure note: other (Colon polyps) Procedure: Colonoscopy with polypectomy Surgeon: Israel Rahman Anesthesia Type: General:No Airway Estimated blood loss (mL): 5 Pathology: other (0.25 cm polyp at 60 cm, 0.25 cm polyps at 30 cm x 2, 0.25 cm polyps at 20 cm x 2) Complications: None Disposition: same day Indications: Jasvir is a 49-year-old male with positive Cologuard test he needs us for screening colonoscopy Prep: Miralax/Dulcolax Procedure Start Time: 08:30 Procedure End Time: 08:37 Retraction Time: 6 Findings: 0.25 cm polyp at 60 cm, 0.25 cm polyps at 30 cm x 2, 0.25 cm polyps at 20 cm x 2 Procedure Description: After the induction of anesthesia, and with the patient in left lateral decubitus position, I began by performing an external anorectal exam.? Perineum and skin were normal, as was the anal verge.? There was no evidence of external hemorrhoids.? Next, I performed a digital rectal exam.? I did not appreciate any abnormal findings.? Next, I advanced a colonoscope into the rectal vault.? I performed retroflexion.? This appeared normal.? Using insufflation, I then advanced the colonoscope beyond the rectal folds and into the sigmoid colon before advancing towards the cecum.? The quality of the prep was adequate.? Around 60 cm from the anal verge was a 0.25 cm polyp. It was mostly flat. Narrowband imaging was used to assist with the analysis. It appeared adenomatous. This was removed with cold forceps with minimal bleeding. Scope was noted to be in the cecum by identification of the ileocecal valve and appendiceal orifice.? I then began withdrawing the colonoscope using repeated irrigation as necessary for full evaluation of the colonic mucosa. ?The previous polypectomy site looks fine around 30 cm from the anal verge for 2 more polyps. These were immediately adjacent to 1 another. These were removed with cold forceps with minimal bleeding. Once the scope was withdrawn to the level of the rectum, great care was taken to examine portions of the rectal folds.? In the upper portion of the rectal vault, just around 20 cm from the anal verge for tumor polyps. These appeared a little more consistent with hyperplastic polyps, but to be safe, these were also removed with cold forceps. Finally, the scope was withdrawn and the patient was brought to the same-day surgery recovery unit as the anesthetic wore off. ?The findings and instructions were shared with the patient prior to discharge. [place] Bowel Prep [place] Bowel Prep Right Colon: 2 Left Colon: 2 Transverse Colon: 3 Total Score: 7
[2024-10-02 09:30] VITALS: BP 149/89; PULSE 58; RESP 18; TEMP 36.2; O2SAT 97
--- NOTE | 2024-10-02 09:46 | W.ANESPOSTOP ---
Postoperative Evaluation Date, Time and Location Date Performed: 10/02/24 Time Performed: 09:46 Patient Location: Day Surgery Unit Vital Signs Most Recent Imported Vital Signs: Most Recent Vital Signs Temp Pulse Resp BP Pulse Ox 36.2 C L 58 L 18 149/89 H 97 10/02/24 09:30 10/02/24 09:30 10/02/24 09:30 10/02/24 09:30 10/02/24 09:30 Pain Score Most Recent Pain Score: Most Recent Pain Score Pain Level 0 10/02/24 09:30 Assessment Mental Status: Awake (Alert & Oriented to Patient Baseline) Airway and Respiratory Function: Patent airway with normal (patient baseline) respiratory exam Cardiovascular Function: Hemodynamically Stable Hydration Status: Adequately Hydrated Nausea & Vomiting: No Nausea or Vomiting Pain: Pt. Denies Any Pain Peripheral Nerve Block: Patient did not receive a nerve block
== END 2024-10-02 09:47 | disposition home or self-care (01) ==
LOC: SUR 07:05
PROVIDERS: PCP Nurse Practitioner Family; Visit Provider Surgery
PROC: 0DJD8ZZ Inspection of Lower Intestinal Tract, Via Natural or Artificial Opening Endoscopic (ICD-10-PCS; CPT 45378; principal; 2024-10-02 08:15)
DX: Z12.11 Encounter for screening for malignant neoplasm of colon; D12.5 Benign neoplasm of sigmoid colon
CPT/HCPCS: 45380; 88305; J2704